=== PATIENT | male | born 1940 | race Caucasian/White ===

== ENCOUNTER 2020-02-18 10:44 | Emergency (ER) | payer OTHER ==
[~2020-02-18] VITALS: Ht 185.4 cm; Wt 84.8 kg
[~2020-02-18 10:44] MED LIST: ALEN70TA3 PO; ASPI-1420 PO; CALC-7 PO; CHOL100044 PO; CYAN-51 PO; ENOX80DI SQ; HYDR-3972 PO; HYDR25TA4 PO; MINE105O TP; MULT-24 PO; POTA5TAB2 PO; SIMV-46 PO; [UNRECOGNIZED DRUG - CODE] TP
--- NOTE | 2020-02-18 11:19 | NUR ---
ASSUMED PT CARE. PT IN BED AWAKE AND ALERT. NOT IN RESP DISTRESS, BRAETHING EVEN AND UNLABORED. BP NOTED @ 90/59, MD MADE AWARE. ORDER RECEIVED TO GIVE 1L NS VIA IV BOLUS.
--- NOTE | 2020-02-18 11:22 | NUR ---
[facility]IME [facility] WHERE HE IS STAYING. TO ER BED 7. AAOX4. NOT IN RESP DISTRESS, BREATHING EVEN ADN UNLABORED. NOTED PRODUCTIVE COUGH. PT WAS BROUGHT IN FOR SOB X 1 WEEK. UPON ASSESSMENT, PT IS NOT IN DISTRESS AND SATTING AT 95% ON RA. MD WAS AT THE BEDSIDE FOR EVAL. ORDERS RECEIVED NOTED AND CARRIED OUT. IV LINE OBTAINE DON LFA 18G. BLOOD DRAWN AN D SENT TO LAB.
[2020-02-18] MEDS ORDERED: IV NS 0.9% 1,000 ML IV ONE (11:30)
[2020-02-18] MEDS ORDERED: AZITHROMYCIN 500 MG in IV D5W 250 ML IV ONE (13:00)
[2020-02-18] MEDS ORDERED: CEFTRIAXONE 1 G in IV D5W 50 ML IV ONE (13:00)
[2020-02-18 13:22] LABS: BASOPHILS % (AUTO) 0.4 % (0.0-2.0); EOSINOPHILS % (AUTO) 0.7 % (0.0-6.0); HEMATOCRIT 28 % (39-51); HEMOGLOBIN 9.3 g/dL (13.5-17.5); LYMPHOCYTES # (AUTO) 0.5 /CMM (0.8-4.8); MEAN CORPUSCULAR HGB CONC 33 g/dl (31.0-36.0); MEAN CORPUSCULAR VOLUME 85 fL (80-96); MONOCYTES # (AUTO) 0.6 /CMM (0.1-1.30); MONOCYTES % (AUTO) 5.8 % (2.0-12.0); NEUTROPHILS # (AUTO) 8.8 /CMM (1.8-8.9); NEUTROPHILS % (AUTO) 88.1 % (43.0-81.0); PLATELET COUNT (AUTO) 268 /CMM (150-450)
[2020-02-18 13:28] LABS: CARBON DIOXIDE 22 mmol/L (21-32); CHLORIDE 98 mmol/L (98-107); CREATININE 2.9 mg/dL (0.6-1.3); GLUCOSE 146 mg/dL (74-106); POTASSIUM 5.5 mmol/L (3.5-5.1); SODIUM SERUM 128 mmol/L (136-145); UREA NITROGEN, BLOOD 58 mg/dL (7-18)
[2020-02-18 13:41] LABS: B-TYPE NATRIURETIC PEPTIDE 4588 PG/ML (0-125)
--- NOTE | 2020-02-18 13:50 | NUR ---
CALLED [facility], AWAITING MD CALL BACK
--- NOTE | 2020-02-18 14:30 | NUR ---
PT PROVIDE WITH MEAL
--- NOTE | 2020-02-18 14:41 | NUR ---
SPOKE TO [facility]. PT GOING TO [facility] ER. CALL REPORT # . DR. SEXTON (ACCEPTING MD). ETA [id number]
--- NOTE | 2020-02-18 14:45 | NUR ---
TRANSFER INFO: PT GOING TO [facility], ACCEPTED BY DR SEXTON, RN FOR REPORT [phone], [facility] ETA [id number]
--- NOTE | 2020-02-18 15:21 | NUR ---
REPORT GIVEN TO JUAREZ MEYER AT THE [facility] ER
[2020-02-18 15:24] VITALS: BP 101/52
--- NOTE | 2020-02-18 15:25 | NUR ---
[facility] AT BEDSIDE FOR PT TRANSPORT TO [facility]. REPORT GIVEN. NAD NOTED.
--- NOTE | 2020-02-18 15:35 | NUR ---
AMBULANCE STAFF REPORTED THAT PT IS NOTED WITH BP OF 81/56 ON THEIR MONITOR. SEVERAL MINUTE PRIOR TO THEM CHECKING BP WAS NOTED @ 101/52 ON MONITOR IN THE ROOM. MD MADE AWARE. VERBAL ORDER GIVEN TO GIVE NS 1L BOLUS X 1 DOSE WHILE PT IS BEING TRANSPORTED. NO DISTRESS NOTED. PT IS AAO. VERBALLY RESPONSIVE.
--- NOTE | 2020-02-18 15:40 | NUR ---
PT LEFT ON GURNEY WITH 2 AMBULANCE STAFF.
[2020-02-18] MEDS ORDERED: IV NS 0.9% 500 ML BAG IV ONE (16:00)
== END 2020-02-18 16:09 | disposition short-term general hospital (02) ==
LOC: ER 10:49
DX: J18.9 Pneumonia, unspecified organism (principal); J91.8 Pleural effusion in other conditions classified elsewhere; Z20.828 Contact with and (suspected) exposure to other viral communicable diseases; N17.9 Acute kidney failure, unspecified; E86.0 Dehydration; E87.1 Hypo-osmolality and hyponatremia; D64.9 Anemia, unspecified; R79.89 Other specified abnormal findings of blood chemistry; E87.5 Hyperkalemia; I95.9 Hypotension, unspecified; I48.20 Chronic atrial fibrillation, unspecified; Z86.718 Personal history of other venous thrombosis and embolism; Z79.82 Long term (current) use of aspirin; R73.03 Prediabetes; E78.5 Hyperlipidemia, unspecified; G20 Parkinson's disease; F02.80 Dementia in other diseases classified elsewhere, unspecified severity, without behavioral disturbance, psychotic disturbance, mood disturbance, and anxiety; I11.9 Hypertensive heart disease without heart failure
CPT/HCPCS: 36415; 71045 ×2; 80048; 83605; 83880; 84145; 84484; 85025; 87040 ×2; 87426; 93005; 96361; 96365; 96367; 99285; C9803; J0456; J0696; J7030 ×2; J7060